=== PATIENT | male | born 1990 | race Caucasian/White ===

== ENCOUNTER 2022-09-29 18:39 | Emergency (ER) | payer OTHER, SELFPAY ==
--- NOTE | ~2022-09-29 | CT_ITS ---
EXAMINATION: CT brain wo con DATE: 09/29/2022 19:20 INDICATION: head injury . TECHNIQUE: Computed tomography (CT) of the head was performed without intravenous contrast. The mA wa s adjusted according to patient size. Iterative reconstruction technique was employed. The dose-lengt h product was 605.33 mGy-cm. COMPARISON: 05/29/2010 FINDINGS: No acute intracranial hemorrhage or extra-axial fluid collection. No hydrocephalus, mass, or herniation. No acute ischemic infarct. Unremarkable dural venous sinus attenuation. No acute osseous abnormality. Nodular mucosal thickening in the right frontal sinus, and to a lesser extent in the left frontal sin us, the remaining aerated spaces are clear. IMPRESSION: No acute intracranial process. 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
[2022-09-29 19:01] VITALS: BP 129/87; PULSE 143; RESP 16; O2SAT 100
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
[2022-09-29 19:30] VITALS: BP 137/80; PULSE 102; RESP 15; O2SAT 100
[2022-09-29 20:00] VITALS: BP 125/87; PULSE 107; RESP 15; O2SAT 100
[2022-09-29] MEDS: TETANUS,DIPHTHERIA,AC PERTUSSIS ADULT (0.5 ML) BOOSTRIX IM (20:26)
[2022-09-29 20:30] VITALS: BP 135/90; PULSE 100; PULSE 105; RESP 18; RESP 19; O2SAT 100
== END 2022-09-29 20:51 | disposition home or self-care (01) ==
PROVIDERS: Emergency Provider Emergency Medicine
DX: S01.01XA Laceration without foreign body of scalp, initial encounter (principal); W20.8XXA Other cause of strike by thrown, projected or falling object, initial encounter; Z23 Encounter for immunization
CPT/HCPCS: 12002; 70450; 90471; 90715; 99284

== ENCOUNTER 2022-12-19 09:58 | Emergency (ER) | payer OTHER, SELFPAY ==
--- NOTE | ~2022-12-19 | XR_ITS ---
XR chest 2V DATE: 12/19/2022 10:54 INDICATION: Fever, cough TECHNIQUE: PA and lateral views COMPARISON: 07/14/2018 PA and lateral views FINDINGS: Normal heart size. No hilar or mediastinal enlargement. Bilateral hyperinflation. No pulmon dain infiltrate or consolidation, pleural effusion or pulmonary vascular congestion or pneumothorax. 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
[2022-12-19 10:05] VITALS: BP 139/90; PULSE 98; RESP 18; TEMP 37.3; O2SAT 98
[2022-12-19] MEDS: IBUPROFEN 600 MG TABLET PO (10:48)
--- NOTE | 2022-12-19 10:48 | ED.FEVER ---
HPI - Fever General Chief Complaint: Fever Stated Complaint: Body aches, fevers, chills Time Seen by Provider: 12/19/22 10:12 Source: patient Mode of arrival: ambulatory Limitations: no limitations History of Present Illness HPI Narrative: This is a 32 year old male that presents to the ER for cold symptoms ongoing since this morning. Reports fever, chills, myalgias, sore throat, and cough. He took Tylenol sever cold this morning. Reports he feels like he is having difficulty breathing. Denies chest pain. Related Data Allergies Allergy/AdvReac Type Severity Reaction Status Date / Time No Known Allergies Allergy Verified 12/19/22 10:09 Review of Systems Review of Systems: CONSTITUTIONAL: Reports fever, chills ENT: Reports congestion, sore throat CARDIOVASCULAR: Denies chest pain RESPIRATORY: Reports cough and dyspnea. All systems reviewed & are unremarkable except as noted in HPI and below PMFSH Past Medical History Medical History (Updated 12/19/22 @ 11:00 by Meagan Jackson PA-C) No active medical problems Social History Social History (Updated 12/19/22 @ 10:53 by Meagan Jackson PA-C) Smoking status: Former smoker Exam Narrative: GENERAL: Well-appearing, well-nourished, and in no acute distress. HEAD: Normocephalic, atraumatic. EYES: EOMI. ENT: Nares clear, no rhinorrhea or epistaxis. Mucous membranes moist. Oropharynx without tonsillar hypertrophy exudate or other lesions. Bilateral TMs pearly kerr non-bulging NECK: Supple. No adenopathy or masses. CHEST: Clear to auscultation. No respiratory distress. No wheezes rales or rhonchi HEART: Regular rate and rhythm. No murmur heard. Normal peripheral pulses. EXTREMITIES: Normal range of motion. No edema. SKIN: Warm, dry, no rash. NEURO: No focal deficits. Alert and oriented x3. PSYCH: Normal mood and affect Course Vital Signs Vital signs: Vital Signs Temperature 99.1 F 12/19/22 10:05 Pulse Rate 98 12/19/22 10:05 Respiratory Rate 18 12/19/22 10:05 Blood Pressure 139/90 12/19/22 10:05 Pulse Oximetry 98 12/19/22 10:05 Oxygen Delivery Room Air 12/19/22 10:05 Temperature 99.1 F 12/19/22 10:05 Pulse Rate 98 12/19/22 10:05 Respiratory Rate 18 12/19/22 10:05 Blood Pressure 139/90 12/19/22 10:05 Pulse Oximetry 98 12/19/22 10:05 Oxygen Delivery Room Air 12/19/22 10:05 MDM - Fever MDM Narrative Medical decision making narrative: Patient presents to the ER for cold symptoms present today. He is afebrile and nontoxic appearing. Oxygen saturation is normal on room air. Lungs are clear on exam. Found to be COVID positive. Chest x-ray without acute cardiopulmonary abnormality. Patient updated on workup. Instructed on continued care of viral infection. He is to follow up with primary care provider. He was given warnings to return to the ER Differential Diagnosis Differential diagnosis: Likely community acquired pneumonia, viral infection, influenza and other (COVID) Lab Data Attestation: I reviewed the patient's lab results. Labs: Lab Results 12/19/22 Range/Units 10:13 Influenza A (RT-PCR) Negative (Negative) Influenza B (RT-PCR) Negative (Negative) SARS-CoV-2 RNA (RT-PCR) Positive A Imaging Data Radiologist's impression: ITS Impressions Chest X-Ray 12/19/22 11:02 IMPRESSION: Bilateral hyperinflation; no pulmonary infiltrate or consolidation Critical Care Time Critical Care Time Critical Care Time: No Discharge Plan Discharge Clinical Impression: COVID-19 Patient Disposition: Home, Self-Care Condition: Stable Instructions: COVID-19 (Coronavirus Disease 2019) (ED), How to Recover from COVID-19 at Home (ED) Additional Instructions: Return to the emergency department for worsening symptoms, or any other concerns Remain well-hydrated, get plenty of rest, no work or school for several days. Take Tylenol or Motrin [id number] for pain as needed.
[2022-12-19 10:57] LABS: Influenza A QL RT-PCR Negative (Negative); Influenza B QL RT-PCR Negative (Negative); SARS-CoV-2 RNA PCR Positive
== END 2022-12-19 11:48 | disposition home or self-care (01) ==
PROVIDERS: Emergency Medicine; Emergency Provider Physician Assistant
DX: U07.1 COVID-19 (principal); Z87.891 Personal history of nicotine dependence
CPT/HCPCS: 71046; 87636; 99283; A9270

== ENCOUNTER 2024-05-11 08:28 | Emergency (ER) | payer OTHER, SELFPAY ==
--- NOTE | ~2024-05-11 | XR_ITS ---
EXAMINATION: XR hand RT min 3V DATE: 05/11/2024 08:58 INDICATION: Right hand injury and pain. TECHNIQUE: 4 views of right hand were obtained. COMPARISON: Right hand radiographs 05/01/2013 FINDINGS: Bone alignment is normal. No acute fracture. There is plate and screw fixation of segmental carpal. 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 IMPRESSION: 1. No acute fracture. Reviewed, dictated and finalized at location E. IMPRESSION: 1. No acute fracture.
--- NOTE | ~2024-05-11 | XR_ITS ---
EXAMINATION: XR wrist RT min 3V DATE: 05/11/2024 08:58 INDICATION: Right wrist injury and pain. TECHNIQUE: 4 views of right wrist were obtained. COMPARISON: Right hand radiographs 05/01/2013 FINDINGS: Bone alignment is normal. No acute fracture. There is plate and screw fixation of second me tacarpal. Joint spaces are normal. IMPRESSION: 1. No acute fracture. Reviewed, dictated and finalized at location E. IMPRESSION: 1. No acute fracture.
[2024-05-11 08:38] VITALS: BP 137/88; PULSE 76; RESP 18; TEMP 37.6; O2SAT 99
--- NOTE | 2024-05-11 09:40 | ED.UPPEXIN ---
HPI - Extremity Injury (Upper) General Chief Complaint: Extremity Injury, Upper Stated Complaint: right wrist injury Time Seen by Provider: 05/11/24 09:09 Source: patient Mode of arrival: ambulatory Limitations: no limitations History of Present Illness HPI narrative: This is a 33 year old male that presents to the ER for right wrist injury sustained yesterday. Reports he punched a wall. Denies decreased ROM or numbness. Related Data Allergies Allergy/AdvReac Type Severity Reaction Status Date / Time No Known Allergies Allergy Verified 05/11/24 08:29 Review of Systems Review of Systems: CONSTITUTIONAL: Denies fever MUSCULOSKELETAL: Reports joint pain, and myalgia. NEUROLOGIC: Denies numbness, or weakness. All systems reviewed & are unremarkable except as noted in HPI and below PMFSH Past Medical History Medical History (Updated 05/11/24 @ 09:41 by Meagan Jackson PA-C) No active medical problems Social History Social History (Updated 12/19/22 @ 10:53 by Meagan Jackson PA-C) Smoking status: Former smoker Exam Narrative: GENERAL: Well-appearing, well-nourished, and in no acute distress. HEAD: Normocephalic, atraumatic. EYES: EOMI. EXTREMITIES: Normal range of motion. No edema or obvious deformity. Normal radial pulse. Normal sensation SKIN: Warm, dry, no rash. NEURO: No focal deficits. Alert and oriented x3. PSYCH: Normal mood and affect Course Course Emergency Course: patient updated on his workup and agrees with plan of care Vital Signs Vital signs: Vital Signs Temperature 99.6 F 05/11/24 08:38 Pulse Rate 76 05/11/24 08:38 Respiratory Rate 18 05/11/24 08:38 Blood Pressure 137/88 05/11/24 08:38 Pulse Oximetry 99 05/11/24 08:38 Oxygen Delivery Room Air 05/11/24 08:38 Temperature 99.6 F 05/11/24 08:38 Pulse Rate 76 05/11/24 08:38 Respiratory Rate 18 05/11/24 08:38 Blood Pressure 137/88 05/11/24 08:38 Pulse Oximetry 99 05/11/24 08:38 Oxygen Delivery Room Air 05/11/24 08:38 MDM - Extremity Injury (Upper) MDM Narrative Medical decision making narrative: Patient presents to the emergency department after a right wrist injury yesterday. He is neurovascularly intact. Right wrist x-ray is without acute osseous abnormalities. Patient placed in an [place] wrap. Instructed to rest, ice and take [id number] pain medication as needed. He is to follow up with PCP. He was given warnings to return to the ER Differential Diagnosis Differential diagnosis: Likely sprain and strain of wrist, fracture of wrist, fracture of hand and other (contusion) Imaging Data Radiologist's impression: ITS Impressions Wrist X-Ray 05/11/24 08:59 IMPRESSION: 1. No acute fracture. Hand X-Ray 05/11/24 09:00 IMPRESSION: 1. No acute fracture. Critical Care Time Critical Care Time Critical Care Time: No Discharge Plan Discharge Clinical Impression: Contusion of right wrist Qualifiers: Encounter type: initial encounter Qualified Code(s): S60.211A - Contusion of right wrist, initial encounter Patient Disposition: Home, Self-Care Condition: Stable Instructions: Contusion in Adults (ED) Additional Instructions: Return to the ER if you experience fever, redness and swelling of your extremity, numbness or any other symptoms that are concerning to you Wear [place] wrap. No weight on the affected extremity. Ice and elevate extremity. Pain medication as needed and directed. Follow up with your primary care doctor for further care. Follow-up/Referrals: Kareem Oleary MD [Physician] - UNKNOWN,DOCTOR [Primary Care Provider] -
== END 2024-05-11 09:46 | disposition home or self-care (01) ==
PROVIDERS: Emergency Provider Physician Assistant
DX: S60.211A Contusion of right wrist, initial encounter (principal); Z87.891 Personal history of nicotine dependence; W22.09XA Striking against other stationary object, initial encounter
CPT/HCPCS: 73110; 73130; 99283